=== PATIENT | female | born 2000 | race Caucasian/White ===

== ENCOUNTER 2022-12-10 14:27 | Outpatient (CLI) | payer OTHER, MEDICAID, SELFPAY ==
--- NOTE | 2022-12-10 14:51 | DI.US.S_ITS ---
PROCEDURE: US OB BIOPHYSICAL PROFILE INDICATIONS: wellbeing OUTSIDE/PRIOR DATING DATA: Last menstrual period (LMP): 03/21/22 LMP-based estimated date of delivery (PRANAY): 12/26/22. First dating scan (date and location): 11/02/[address] Roldan Estimated date of delivery (PRANAY) from first dating scan: 12/25/22, by Dr. Roldan. TECHNIQUE: Real-time scanning was performed of the fetus for biophysical profile, with image documentation. Color and pulse Doppler interrogation was also performed of the umbilical artery near its insertion into the placenta. Endovaginal scanning: Not needed COMPARISON: [facility], US, US OB >= 14 WEEKS FETUS, 11/02/2022, 11:27. FINDINGS: General: A single living intrauterine gestation is present. Presentation: Breech. Placenta: Placental position is anterior , without previa. Amniotic fluid index: 7.7 cm, normal range is 5-24 cm. Single deepest vertical pocket is 3.7 cm. heart rate: 137 beats per minute. Biophysical profile: Tone: 2 points. Movement: 2 points. Respiration: 2 points. Largest pocket of fluid: 2 points. IMPRESSION: Limited study at Ob specialist request. Biophysical profile yields 8 of 8 possible points. We strive to produce accurate, complete, and clear reports of imaging services. To assist us in improving patient care, this report was composed using standard report templates and voice recognition software. Therefore, it may contain abnormal punctuation, insertions and/or omissions. Occasional wrong-word or sound-alike substitutions may occur. Though we review the report and make efforts to correct it, we do recommend that the report be read carefully in proper context to recognize any text inaccuracies. Dictated by: Simon Crum M.D. on 12/10/2022 at 16:33 Approved by: Simon Crum M.D. on 12/10/2022 at 16:37
== END 2022-12-10 16:05 | disposition home or self-care (01) ==
LOC: LABOR 14:40 → OB 12-13 07:39
PROVIDERS: Referring Provider Obstetrics & Gynecology; Visit Provider Obstetrics & Gynecology
DX: O47.1 False labor at or after 37 completed weeks of gestation (principal); Z3A.37 37 weeks gestation of pregnancy
CPT/HCPCS: 59025; 76819; G0378; G0379

== ENCOUNTER 2022-12-13 05:38 | Inpatient (IN) | payer OTHER, MEDICAID, SELFPAY ==
[2022-12-13] VITALS (8 sets, daily range): BP systolic 118–132; BP diastolic 63–87; PULSE 66–82; RESP 12–15; TEMP 35.9–36.2; O2SAT 97–99
[2022-12-13] MEDS: LACTATED RINGERS 1,000 ML 999 ML IV ×2 (07:00→08:36)
[2022-12-13] MEDS: CITRIC ACID/SODIUM CITRATE 15 ML SOLUTION 30 ML PO (07:00)
[2022-12-13 07:36] LABS: Add Manual Diff / Slide Review NO; Basophils Absolute Auto 100 /uL (0-100); Basophils Percent Auto 0.8 % (0-2); Eosinophils Absolute Auto 100 /uL (0-450); Eosinophils Percent Auto 1.4 % (2-4); Hematocrit 27.9 % (36-46); Hemoglobin 9.6 g/dL (12.0-16.0); Lymphocytes Absolute Auto 1800 /uL (1100-4500); Lymphocytes Percent Auto 17.6 % (25-40); Mean Corpuscular HGB Conc 34.5 % (30-36); Mean Corpuscular Hemoglobin 30.9 PG (26-34); Mean Corpuscular Volume 89.6 fL (80-100); Monocytes Absolute Auto 800 /uL (0-900); Monocytes Percent Auto 8.2 % (3-14); Neutrophils Absolute Auto 7300 /uL (1500-7000); Platelet Count 199 X10^3/uL (150-400); Red Blood Cell Count 3.11 X10^6/uL (4.0-5.2); Red Cell Distribution Width 12.8 % (11.6-14.8); White Blood Cell Count 10.1 X10^3/uL (4.5-11.0)
--- NOTE | 2022-12-13 07:50 | PM.OBHP.IH.1 ---
OB HPI Date/Time Date of admission: 12/13/22 Date Patient Seen: 12/13/22 Time Patient Seen: 07:51 History of Present Condition Chief complaint: Section PRANAY Calculator Estimated Delivery Date Method Current WG Current Estimate 12/26/22 Manual 38w 1d Estimated Gestational Age (weeks): 38+1 : 1 Para: 0 care: good care, initiated at week #, number of visits and pounds weight gain Dating criteria OB: LMP confirmed by 1st trimester US Ultrasounds: normal 1st trimester US and normal mid trimester US Obstetrical complications: other (breech, placenta previa) Medical complications OB: psychiatric (bipolar) Indications Operative indications ( section): breech presentation (and placenta previa, oligohydramnios) Preadmission Labs Last OB Lab Results: Blood Type A Positive 12/13/22 07:25 Antibody Screen Negative 12/13/22 07:25 Hematocrit 27.9 % (36-46) L 12/13/22 07:25 Hemoglobin 9.6 g/dL (12.0-16.0) L 12/13/22 07:25 -: Chlamydia screen: negative, Gonorrhea screen: negative and Urine: negative -: PAP smear: Normal External Labs Blood type OB HPI: A (+) positive -: Antibody screen: negative, HBsAG: negative, HIV: negative, RPR/VDLR: negative, Chlamydia screen: negative, Gonorrhea screen: negative, GBS status: negative and Urine: negative -: Rubella: immune HCAB: negative PAP: Normal Genetic Screens: Quad screen: Normal Glucose Tolerance Testin hr (101) Evaluation Evaluation Baseline heart rate: 135 Variability: Moderate (11-25) monitor accelerations: Present Monitor Decelerations: Absent Status: Category l PFSH Medical History (Updated 11/14/22 @ 20:34 by Aneta Wood) Anemia Anxiety Asthma Chicken pox Depression Frequent UTI Headache History of bipolar disorder Migraines PTSD (post-traumatic stress disorder) Sciatica Family History (Updated 11/14/22 @ 20:40 by Aneta Wood) Father Hyperlipidemia Hypertension Mental health problem Mother Hypertension Hyperlipidemia Mental health problem Monserrat's disease Sister Mental health problem Grandfather Hyperlipidemia Hypertension Mental health problem Grandmother Hypertension Mental health problem Grandfather Liver cancer Hypertension Mental health problem Stroke Rheumatoid arthritis Social History Smoking Status: Former smoker Meds Home Medications and Allergies Home Medications Medication Instructions Recorded Confirmed Type vitamin with calcium 1 tab PO DAILY 11/02/22 12/07/22 History no.72-iron 27 mg-folic acid 1 mg tablet (WesTab Plus) quetiapine 400 mg tablet (Seroquel) 400 mg PO BEDTIME 11/02/22 12/07/22 History quetiapine 50 mg tablet (Seroquel) 50 mg PO BEDTIME #10 tabs 11/02/22 12/07/22 Rx Allergies Allergy/AdvReac Type Severity Reaction Status Date / Time No Known Allergies Allergy Verified 12/13/22 09:04 OB Exam Narrative Exam Narrative: Generally: Patient is sitting up in bed, no acute distress Lungs: Clear to auscultation bilaterally Cardiovascular: Regular rate and rhythm Fundal height: 38 cm Estimated weight: 7 lb Extremities: No edema, 1+ DTRs Objective Labs 12/13/22 07:25 Labs: Laboratory Results - last 24 hr 12/13/22 07:25 WBC 10.1 RBC 3.11 L Hgb 9.6 L Hct 27.9 L MCV 89.6 MCH 30.9 MCHC 34.5 RDW 12.8 Plt Count 199 Neut % (Auto) 72.0 Lymph % (Auto) 17.6 L Meagher % (Auto) 8.2 Eos % (Auto) 1.4 L Baso % (Auto) 0.8 Neut # (Auto) 7300 H Lymph # (Auto) 1800 Meagher # (Auto) 800 Eos # (Auto) 100 Baso # (Auto) 100 Assessment and Plan Assessment and Plan Assessment and Plan narrative: Assessment: 22-year-old 1 para 0 at 38-,1/7 weeks gestation with oligohydramnios, breech presentation, and placenta previa Plan: Primary low-transverse section The risks, benefits, and alternatives to the procedure were explained to the patient. The risks including bleeding, infection, injury to the bowel, bladder, or ureters. She understands these risks and agrees to proceed. A full par Q was held and consent form was signed. Time Spent with Patient Total time spent with greater than 50% in coordination of care (as documented) at patient's floor/unit and/or counseling patient:: 15-24 minutes
--- NOTE | 2022-12-13 08:02 | PM.PREOP ---
Pre-operative Note COVID-19 Criteria for continued procedure: Non-surgical alternatives not available or appropriate per current SOC Interval Note History & Physical reviewed/Exam performed by Physician: Yes Changes to H&P: No H&P completed within 30 days and has changed as indicated here:: 12/13/22
[2022-12-13] MEDS: CEFAZOLIN 2 GM/100 ML PREMIX 100 ML IV (08:18)
--- NOTE | 2022-12-13 08:26 | SUR.OPER ---
Supine on Padded OR bed, head on pillow, safety belt at thigh, arms secured on padded arm boards at <90 degrees abduction. Bump under right buttock. Legs uncrossed with pillow under knees, gel pad to heels, tape over blanket to lower legs.
--- NOTE | 2022-12-13 08:37 | SUR.OPER ---
Viable baby boy born at 0829. Placenta delivered at 0832. APGARs 9/9. Cord blood and placenta given to OB RN.
[2022-12-13] MEDS: ACETAMINOPHEN IV 1,000 MG/100 ML VIAL 400 MG IV (08:50)
--- NOTE | 2022-12-13 09:34 | PM.OBCS.1 ---
Operative Date/Time/Diagnoses Date of procedure: 12/13/22 Time of procedure: 09:34 Pre-op diagnosis: 38+1 weeks gestation Breech presentation Placenta previa Oligohydramnios Post-op diagnosis: same Procedure & Clinicians Procedure: Primary low transverse C section Same procedure as scheduled: Yes Indications: Breech presentation Oligohydramnios Placenta previa 38+1 weeks gestation Surgeon: Mariaa Milner Yes if Unassisted: No [employer] Advanced Operator Maintainer: Blessing Lanier Reason for [employer] Advanced Operator Maintainer: The family assistant was necessary to retract upon entry into the abdomen and uterus. She assisted with a breech delivery with gentle fundal pressure. She assisted with closure with retraction and clipping of suture. She closed the contralateral fascia. Anesthesia Type: Spinal (with duramorph) Operative Notes Findings: Live male in the complete breech presentation Normal uterus, tubes and ovaries Closure Type: primary Specimen(s): cord blood and placenta Intraoperative meds administered: Duramorph, Ketorolac and Pitocin Applied: Catheter (to continuous drainage) Estimated Blood Loss (mL): 100 Blood products transfused: none Procedure in detail: The patient was taken to the operating room where she was placed in the seated position. Spinal anesthesia with Duramorph was administered. She was placed in the dorsal supine position with a leftward tilt, and prepped and draped in the usual sterile fashion. A Gutierrez catheter was placed before prepping. After spinal anesthesia was found be adequate, a Pfannenstiel skin incision was made 2 fingerbreadths above the pubic symphysis and carried through to the underlying layer of fascia. The fascia was nicked in the midline and the incision extended bilaterally with the Nix scissors. The superior aspect of the fascial incision was grasped with the Esther clamps, elevated, and the underlying rectus muscles dissected off sharply and bluntly. Attention was then turned to the inferior aspect of this incision which in a similar fashion was grasped with the Esther clamps, elevated, and the underlying rectus muscles dissected off sharply and bluntly. The rectus muscles were in the midline. The peritoneum was identified, grasped between 2 hemostats, and entered sharply with the Metzenbaum scissors. This incision was extended bluntly. The bladder blade was inserted. The vesicouterine peritoneum was identified, grasped with a pickup, and entered sharply with the Metzenbaum scissors. This incision was extended bilaterally, and the bladder flap created digitally. The bladder blade was reinserted. The lower uterine segment was incised in a transverse fashion with the scalpel. Upon entering the amniotic sac there was scant clear amniotic fluid. The was delivered by total breech extraction. The nose and mouth were suctioned with bulb suction. After 1 minute, the cord was double clamped and cut. Cord bloods were obtained. The placenta was removed by expression. The uterus was cleared of all clots and debris. The cervix was opened using a ring forcep. The ring forceps was then handed off of the table. The uterine incision was closed with #1 Chromic in a running interlocking fashion, and a second layer of the same suture was used for an imbricating layer. Hemostasis was achieved. The tubes and ovaries were examined and were found to be normal. The gutters were cleared of all clots and debris. The bladder flap was reapproximated using 2-0 Vicryl in a running fashion. The parietal peritoneum was closed using 2-0 Vicryl in a running fashion. The fascia was reapproximated using 0 Vicryl in a running fashion. The subcutaneous layer was copiously irrigated with warm normal saline. There was no bleeding noted. Five simple interrupted sutures with 3-0 Vicryl were placed to reapproximate the subcutaneous layer. The skin was closed with 4-0 Monocryl in a subcuticular fashion. Steri-Strips and an Aquacel dressing were placed. The uterus was expressed of a small amount of old blood. The fundus was firm at U -2. Apgars 9 at 1 minute and 9 at 5 minutes. Weight 7 lb 5.8 oz. estimated blood loss 100 cc. . Mom and infant are stable to recovery. Complications: none [place] Baby 1: Infant Gender: Male Presentation: breech Details: complete Placental Delivery Description: Expressed Cord Vessel Description: 3 Vessels and Clamped/Cut (after one minute) score (1 min): 9 score (5 min): 9 weight: 7 lb 5.8 oz Post-operative Condition: stable Disposition: PACU Aftercare: routine postop
[2022-12-13] MEDS: ONDANSETRON 4 MG/2 ML INJ IV ×2 (10:22→17:28)
[2022-12-13] MEDS: diphenhydrAMINE 50 MG/ML VIAL 25 MG IV (10:58)
[2022-12-13] MEDS: SCOPOLAMINE 1 PATCH TOP (11:20)
[2022-12-13] MEDS: PROCHLORPERAZINE 10 MG/2 ML VIAL 5 MG IV (11:23)
[2022-12-13] MEDS: PROMETHAZINE 25 MG TABLET 12.5 MG PO (11:31)
[2022-12-13] MEDS: PROMETHAZINE 12.5 MG SUPP PR (11:34)
[2022-12-13] MEDS: OXYCODONE IR 5 MG TABLET PO (11:36)
[2022-12-13] MEDS: hydrOXYzine 50 MG/ML INJ IM (13:06)
[2022-12-13] MEDS: KETOROLAC 30 MG/ML VIAL IV ×2 (14:00→20:19)
[2022-12-13] MEDS: ACETAMINOPHEN 325 MG TABLET 650 MG PO ×2 (17:28→23:56)
[2022-12-14] MEDS: KETOROLAC 30 MG/ML VIAL IV (02:10)
[2022-12-14 05:49] LABS: Hematocrit 26.3 % (36-46); Hemoglobin 9.1 g/dL (12.0-16.0)
[2022-12-14] MEDS: ACETAMINOPHEN 325 MG TABLET 650 MG PO ×3 (05:55→21:06)
[2022-12-14] MEDS: DOCUSATE 100 MG CAPSULE PO (09:57)
[2022-12-14] MEDS: IBUPROFEN 600 MG TABLET PO ×3 (09:57→22:01)
[2022-12-14] MEDS: OXYCODONE IR 5 MG TABLET PO (14:13)
--- NOTE | 2022-12-14 18:09 | PM.OBPN.1 ---
Subjective - OB Subjective Patient comments: no complaints, pain well controlled and tolerating diet baby status: doing well feeding status: breast and bottle feeding Date Patient Seen: 12/14/22 Time Patient Seen: 12:45 Interval history: POD #1 s/p Primary C section Ambulating, voiding without the catheter, tolerating a diet. Struggling with Exam Vital Signs (past 8 hours): Oxygen Delivery Method Room Air Narrative Exam Narrative: Generally: Sitting up in bed, feeding infant, NAD Fundus: Firm U/-1 Incision: Small area of old blood. Ext: Trace edema, Neg Harish's Objective Labs 12/14/22 05:37 Labs: Laboratory Results - last 24 hr 12/14/22 05:37 Hgb 9.1 L Hct 26.3 L Assessment & Plan Plan day: 1 plan OB: routine postop care Comments: support Time Spent With Patient Time: Total time spent is greater than 50% in coordination of care (as documented) at patient's floor/unit and/or counseling patient: Time with patient: 15-24 minutes
[2022-12-15] MEDS: ACETAMINOPHEN 325 MG TABLET 650 MG PO ×2 (03:19→09:01)
[2022-12-15] MEDS: IBUPROFEN 600 MG TABLET PO ×2 (03:20→09:02)
[2022-12-15] MEDS: OXYCODONE IR 5 MG TABLET PO (03:44)
[2022-12-15] MEDS: PRENATAL VIT,CALC/IRON/FOLIC 1 TABLET 1 TAB PO (09:01)
[2022-12-15] MEDS: DOCUSATE 100 MG CAPSULE PO (09:01)
--- NOTE | 2022-12-18 18:12 | PM.OBDS.1 ---
Discharge Providers Provider Date of admission: 12/13/22 05:38 Discharge Date: 12/15/22 Primary care physician: Doctor Seth MD Consults: 12/13/22 09:44 Consult to Environmental Change Analyst Routine Comment: Discharge provider: Mariaa Roldan MD Summary Hospital Course Date Patient Seen: 12/15/22 Time Patient Seen: 07:30 Diagnoses: 38-1/7 weeks gestation Breech presentation Oligohydramnios Placenta previa Primary low-transverse section Hospital Course: Patient is a 22-year-old 1 para 1 who presented December 13, 2022 for a scheduled primary low-transverse section secondary to oligohydramnios, breech presentation, and placenta previa. She underwent this procedure without complication. She had significant nausea and vomiting on postop day #0. This was resolved with IV antiemetics. On postop day #, her catheter was removed and she was able to void without the catheter. She tolerated a diet. Pain was well controlled. She was ambulating without assistance. was going well. She was discharged home on postop day #1. Peripartum Data Infant Delivery Method: Section Procedures: Spinal anesthesia Primary low-transverse section complications: none [place] 1: Gender: Male Disposition of : home Status at Discharge Cognitive/behavioral status at discharge: oriented Functional status at discharge: independent ambulation Overall status at discharge: patient is progressing back to baseline Time Spent with Patient Time attestation: Total time spent providing and/or coordinating discharge services: Time spent: Less than 30 minutes Objective Labs 12/14/22 05:37 Exam Vital Signs (past 8 hours): Oxygen Delivery Method Room Air Narrative Exam Narrative: Generally: Patient is sitting up in bed, holding infant, no acute distress Lungs: Clear to auscultation bilaterally Cardiovascular: Regular rate and rhythm Fundus: Firm at U -2 Incision: Clean dry and intact with Aquacel dressing Extremities: Trace edema, negative Homans Discharge Plan Discharge Plan Patient Disposition: Home Provider Discharge Comment: Call with fever, chills, or redness or drainage around the incision Call with bleeding vaginally more than a pad in an hour Ibuprofen 600 mg every 6 hours as needed Tylenol 650 mg every 6 hours as needed Continue vitamins Push oral fluids Discharge orders & Medications Prescriptions: New oxycodone 5 mg tablet 5 mg PO Q4H PRN (Reason: pain) Qty: 14 0RF Continued quetiapine [Seroquel] 50 mg tablet 50 mg PO BEDTIME Qty: 10 0RF quetiapine [Seroquel] 400 mg tablet 400 mg PO BEDTIME WesTab Plus 27 mg iron- 1 mg tablet 1 tab PO DAILY Follow up/Referrals: Mariaa Roldan MD [Physician] - (Please arrange a 2 week telehealth visit for patient Her mom will remove the Aquacel dressing) Diet/Activity/Treatments Diet: Regular Activity: No heavy lifting Nothing more than the baby or a gal of milk Skin/Wound/Dressing Care Report to your healthcare provider any signs of infection, such as:: chills, fever, increased pain, unusual drainage and unusual redness Dressing: Aquacel dressing to be removed by her mother in 1 week Visit Report/Discharge Packet Instructions: Depression, DI for , DI for Depression, DI for and Nipple Soreness, DI for Prescription Opioid Use Stand Alone Forms: Discharge: Care, Patient Portal/API, Stroke Signs & Symptoms Discharge Data Primary Care Provider: Miscellaneous,Doctor Discharges patient from system. Discharge Date/Time: 12/15/22 16:00
== END 2022-12-15 16:00 | disposition home or self-care (01) | DRG 787 ==
PROVIDERS: Admitting Provider Obstetrics & Gynecology; Referring Provider Obstetrics & Gynecology; Visit Provider Obstetrics & Gynecology
PROC: 10D00Z1 Extraction of Products of Conception, Low, Open Approach (ICD-10-PCS; CPT 59514; principal; 2022-12-13 07:45)
DX: O32.8XX0 Maternal care for other malpresentation of fetus, not applicable or unspecified (principal); O41.03X0 Oligohydramnios, third trimester, not applicable or unspecified; O44.03 Complete placenta previa NOS or without hemorrhage, third trimester; Z3A.38 38 weeks gestation of pregnancy; Z37.0 Single live birth; O99.344 Other mental disorders complicating childbirth; F31.9 Bipolar disorder, unspecified
CPT/HCPCS: 36415; 59050; 59514; 59515; 85014; 85018; 85025; 86850; 86900; 86901; J0131; J0690; J0780; J1200; J1885; J2274; J2405; J2590; J3410

== ENCOUNTER → 2024-02-16 11:25 | Outpatient (CLI) | payer OTHER, MEDICAID, SELFPAY ==
[2024-02-16 13:49] LABS: HCG Quantitative /Beta subunit 5.49 mIU/mL
== END ==
PROVIDERS: Referring Provider Obstetrics & Gynecology; Visit Provider Obstetrics & Gynecology
DX: O02.0 Blighted ovum and nonhydatidiform mole (principal)
CPT/HCPCS: 36415; 84702

== ENCOUNTER → 2024-02-23 13:13 | Outpatient (CLI) | payer OTHER, MEDICAID, SELFPAY ==
[2024-02-23 15:20] LABS: HCG Quantitative /Beta subunit 2.87 mIU/mL
== END ==
PROVIDERS: Referring Provider Obstetrics & Gynecology; Visit Provider Obstetrics & Gynecology
DX: O02.0 Blighted ovum and nonhydatidiform mole (principal)
CPT/HCPCS: 36415; 84702

== ENCOUNTER → 2024-03-01 11:32 | Outpatient (CLI) | payer OTHER, MEDICAID, SELFPAY ==
[2024-03-01 12:43] LABS: HCG Quantitative /Beta subunit < 2.39 mIU/mL
== END ==
PROVIDERS: Referring Provider Obstetrics & Gynecology; Visit Provider Obstetrics & Gynecology
DX: O08.89 Other complications following an ectopic and molar pregnancy (principal)
CPT/HCPCS: 36415; 84702

== ENCOUNTER → 2024-03-26 14:01 | Outpatient (CLI) | payer OTHER, MEDICAID, SELFPAY ==
[2024-03-26 15:55] LABS: HCG Quantitative /Beta subunit < 2.39 mIU/mL
== END ==
PROVIDERS: Referring Provider Obstetrics & Gynecology; Visit Provider Obstetrics & Gynecology
DX: O08.89 Other complications following an ectopic and molar pregnancy (principal)
CPT/HCPCS: 36415; 84702

== ENCOUNTER → 2024-05-04 15:49 | Outpatient (CLI) | payer OTHER, MEDICAID, SELFPAY ==
[2024-05-04 17:59] LABS: HCG Quantitative /Beta subunit < 2.39 mIU/mL
== END ==
PROVIDERS: Referring Provider Obstetrics & Gynecology; Visit Provider Obstetrics & Gynecology
DX: O08.89 Other complications following an ectopic and molar pregnancy (principal)
CPT/HCPCS: 36415; 84702

== ENCOUNTER → 2024-05-30 14:48 | Outpatient (CLI) | payer OTHER, SELFPAY ==
[2024-05-30 16:31] LABS: HCG Quantitative /Beta subunit 178.72 mIU/mL
== END ==
PROVIDERS: Referring Provider Obstetrics & Gynecology; Visit Provider Obstetrics & Gynecology
DX: O09.A1 Supervision of pregnancy with history of molar pregnancy, first trimester (principal)
CPT/HCPCS: 36415; 84702

== ENCOUNTER → 2024-06-01 09:29 | Outpatient (CLI) | payer OTHER, SELFPAY ==
[2024-06-01 11:29] LABS: HCG Quantitative /Beta subunit 482.62 mIU/mL
== END ==
PROVIDERS: Referring Provider Obstetrics & Gynecology; Visit Provider Obstetrics & Gynecology
DX: O09.A1 Supervision of pregnancy with history of molar pregnancy, first trimester (principal)
CPT/HCPCS: 36415; 84702

== ENCOUNTER → 2024-06-11 14:31 | Outpatient (CLI) | payer OTHER, SELFPAY ==
[2024-06-11 23:10] LABS: Urine N gonorrhoeae NOT DETECTED
[2024-06-11 23:27] LABS: Urine Chlamydia NOT DETECTED
== END ==
PROVIDERS: Visit Provider Obstetrics & Gynecology
DX: Z34.81 Encounter for supervision of other normal pregnancy, first trimester (principal); Z3A.09 9 weeks gestation of pregnancy
CPT/HCPCS: 87491; 87591

== ENCOUNTER → 2024-07-12 16:01 | Outpatient (CLI) | payer OTHER, SELFPAY ==
[2024-07-12 17:14] LABS: Natera Collection Specimen Collected
[2024-07-12 17:38] LABS: Add Manual Diff / Slide Review NO; Basophils Absolute Auto 0 /uL (0-100); Basophils Percent Auto 0.2 % (0-2); Eosinophils Absolute Auto 100 /uL (0-450); Hematocrit 32.8 % (36-46); Hemoglobin 11.3 g/dL (12.0-16.0); Lymphocytes Absolute Auto 1300 /uL (1100-4500); Lymphocytes Percent Auto 14.6 % (25-40); Mean Corpuscular HGB Conc 34.6 % (30-36); Mean Corpuscular Hemoglobin 30.6 PG (26-34); Mean Corpuscular Volume 88.5 fL (80-100); Monocytes Absolute Auto 500 /uL (0-900); Monocytes Percent Auto 5.2 % (3-14); Neutrophils Absolute Auto 6900 /uL (1500-7000); Platelet Count 251 X10^3/uL (150-400); Red Cell Distribution Width 13.7 % (11.6-14.8); White Blood Cell Count 8.8 X10^3/uL (4.5-11.0)
[2024-07-12 18:32] LABS: Hepatitis B Surface Antigen NEGATIVE s/c (NEGATIVE); Rubella Antibody IgG 10.6 IU/mL (>15)
[2024-07-12 18:49] LABS: HIV 1 & 2 Ab/Ag 4th Gen Combo NEGATIVE (NEGATIVE); Hep C Virus Ab w/Reflex Quant NEGATIVE s/c (NEGATIVE)
== END ==
PROVIDERS: Referring Provider Obstetrics & Gynecology; Visit Provider Obstetrics & Gynecology
DX: O09.899 Supervision of other high risk pregnancies, unspecified trimester (principal); Z3A.10 10 weeks gestation of pregnancy
CPT/HCPCS: 36415; 80055; 86787; 86803; 86850; 86900; 86901; 87086; 87389

== ENCOUNTER → 2024-07-26 10:00 | Outpatient (CLI) | payer OTHER, SELFPAY | PROVIDERS: Visit Provider Specialist | DX: R31.9 Hematuria, unspecified (principal); Z3A.12 12 weeks gestation of pregnancy | CPT/HCPCS: 87086 ==

== ENCOUNTER → 2024-08-02 13:58 | Outpatient (CLI) | payer OTHER, SELFPAY ==
[2024-08-02 14:15] LABS: Appearance Urine UA CLEAR; Bilirubin Urine UA NEGATIVE (NEGATIVE); Color Urine UA YELLOW; Glucose Urine UA NEGATIVE (Negative); Ketones Urine UA TRACE (NEGATIVE); Leukocyte Esterase Urine UA NEGATIVE (NEGATIVE); Nitrite Urine UA NEGATIVE (Negative); Occult Blood Urine UA TRACE-INTACT (Negative); Protein Urine UA NEGATIVE (Negative); Specific Gravity Urine UA 1.025 (1.000-1.035); Urobilinogen Urine UA 0.2 E.U./dL (0.2)
[2024-08-02 14:27] LABS: pH Urine UA 5.5 (4.5-8.0)
[2024-08-02 14:28] LABS: Bacteria Urine Occasional (0-1); RBC Urine 1-5/HPF (0-5/HPF); Squamous Epithelial Cell Urine 1-5 /HPF (0-5/HPF); Urine Volume 10mL (spun); WBC Urine 1-5/HPF (0-5/HPF)
[2024-08-02 14:29] LABS: Culture Indicated Urine Cult Not Indicated
== END ==
PROVIDERS: Referring Provider Obstetrics & Gynecology; Visit Provider Obstetrics & Gynecology
DX: R82.998 Other abnormal findings in urine (principal); R82.90 Unspecified abnormal findings in urine
CPT/HCPCS: 81001

== ENCOUNTER 2024-08-12 16:21 | Emergency (ER) | payer OTHER, SELFPAY ==
[2024-08-12 16:24] VITALS: BP 109/56; PULSE 88; RESP 18; TEMP 36.4; O2SAT 100; BMI 25.4
--- NOTE | 2024-08-12 16:34 | DI.US.S_ITS ---
PROCEDURE: US OB LIMITED INDICATIONS: CRAMPING OUTSIDE/PRIOR DATING DATA: Last menstrual period (LMP): 05/07/2024. LMP-based estimated date of delivery (PRANAY): 02/11/2025. First dating scan (date and location): 06/28/2024, office based. Estimated date of delivery (PRANAY) from first dating scan: 02/07/2025. TECHNIQUE: Real-time scanning was performed of the fetus, with image documentation. COMPARISON: [facility], , US OB <= 14 WEEKS FETUS, 06/28/2024, 15:49. FINDINGS: A single live intrauterine gestation is present. Presentation: Vertex. Placenta: Placental position is posterior, without previa. Amniotic fluid index: 9.8 cm, normal range is 5-24 cm. Single deepest vertical pocket is 4.5 cm. heart rate: 145 beats per minute. Maternal cervical canal: 6 cm long. Normal lower limit is 2.5 cm. IMPRESSION: No imaging explanation is found for this patient's presenting symptoms. Normal appearing cervix, 6 cm. Normal SHANNA. Dictated by: Feng Paredes M.D. on 08/12/2024 at 17:05 Approved by: Feng Paredes M.D. on 08/12/2024 at 17:08
[2024-08-12 17:05] LABS: Add Manual Diff / Slide Review NO; Basophils Absolute Auto 0 /uL (0-100); Basophils Percent Auto 0.4 % (0-2); Eosinophils Absolute Auto 100 /uL (0-450); Eosinophils Percent Auto 1.1 % (2-4); Hematocrit 33.4 % (36-46); Hemoglobin 11.4 g/dL (12.0-16.0); Lymphocytes Absolute Auto 1600 /uL (1100-4500); Lymphocytes Percent Auto 20.5 % (25-40); Mean Corpuscular HGB Conc 34.1 % (30-36); Mean Corpuscular Hemoglobin 30.4 PG (26-34); Mean Corpuscular Volume 89.1 fL (80-100); Monocytes Absolute Auto 500 /uL (0-900); Monocytes Percent Auto 6.1 % (3-14); Neutrophils Absolute Auto 5600 /uL (1500-7000); Neutrophils Percent Auto 71.9 % (50-75); Platelet Count 248 X10^3/uL (150-400); Red Blood Cell Count 3.75 X10^6/uL (4.0-5.2); Red Cell Distribution Width 13.3 % (11.6-14.8); White Blood Cell Count 7.8 X10^3/uL (4.5-11.0)
[2024-08-12 17:14] LABS: Alanine Aminotransferase 22 IU/L (<35); Albumin 4.3 g/dL (3.5-5.0); Albumin Globulin Ratio 1.5 (1.0-2.8); Alkaline Phosphatase 60 U/L (38-126); Aspartate Aminotransferase 28 IU/L (14-36); BUN Creatinine Ratio 17.9 (6-22); Bilirubin Total 0.6 mg/dL (0.2-1.3); Blood Urea Nitrogen 10 mg/dL (7-17); Calcium 9.4 mg/dL (8.4-10.2); Carbon Dioxide 21 mmol/L (22-32); Chloride 104 mmol/L (98-107); Estimated Glomerular Filt Rate > 60 mL/min (>60); Globulin 2.8 g/dL (1.7-4.1); Glucose 88 mg/dL (70-100); HEMOLYSIS < 15 (0-50); Potassium 3.9 mmol/L (3.4-5.1); Sodium 135 mmol/L (137-145); Total Protein 7.1 g/dL (6.3-8.2)
[2024-08-12 17:55] LABS: HCG Quantitative /Beta subunit 29403 mIU/mL
--- NOTE | 2024-08-12 21:05 | ED.GENADULT ---
HPI - General Adult General Chief complaint: OB/Uterine Contractions Stated complaint: cramping, cant find heartbeat 14wks Time Seen by Provider: 08/12/24 20:41 Source: patient Mode of arrival: Ambulatory History of Present Illness HPI narrative: 24-year-old female (prior molar ) currently at 14-15 weeks gestation, complains of abdominal cramping through the day today. No leaking of fluid, no vaginal bleeding. She does have a son at home with recent diagnosis of norovirus. No nausea or vomiting since 1st trimester of this , none recent. No loose stools. No fevers or chills. No frequency of urination. No painful urination. No shortness of breath or cough. No known injury, trauma, new activities. Has care through Dr. 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 Related Data Home Medications Medication Instructions Recorded Confirmed fluoxetine 20 mg capsule 20 mg PO DAILY 02/16/24 07/26/24 aripiprazole 10 mg tablet 10 mg PO DAILY 06/04/24 07/26/24 Previous Rx's Medication Instructions Recorded ondansetron 4 mg disintegrating 4 mg PO Q6H PRN nausea and 07/20/24 tablet vomiting in #20 tabs vitamin with calcium 1 tab PO DAILY #90 tabs 07/23/24 no.72-iron 27 mg-folic acid 1 mg tablet (WesTab Plus) Allergies Allergy/AdvReac Type Severity Reaction Status Date / Time morphine AdvReac Mild Vomiting Verified 07/26/24 09:53 Patient History Medical History (Updated 08/12/24 @ 21:20 by Fili Kohler MD) Anemia Frequent UTI Partial molar Chicken pox Surgical History (Updated 06/25/24 @ 12:17 by Mariaa Roldan MD) History of dilation and curettage (~12/2023) Previous section [place] teeth extracted Family History (Updated 06/04/24 @ 08:13 by Chinyere Leon RN) Father Hyperlipidemia Hypertension Depression Anxiety PTSD (post-traumatic stress disorder) Mother Hypertension Hyperlipidemia Monserrat's disease Depression Sister Depression Grandfather Hyperlipidemia Hypertension Depression Suicide Anxiety Grandmother Hypertension OCD (obsessive compulsive disorder) Depression Grandfather Liver cancer Hypertension Stroke Rheumatoid arthritis PTSD (post-traumatic stress disorder) Depression Difficulty controlling anger Social History marital status: unmarried,living together number of children: 1 household members: significant other and children lives independently: Yes caregiver/support person: Yes housing: condominium ([facility]) pets and animals: Yes (joni) education level: vocational ([employer]) occupational status: employed (daycare) current occupational exposures/hazards: No special sabra needs: No travel history: over 6 months ago seatbelt use: always water heater temp set < 120 deg: Yes working smoke detector in home: Yes fire extinguisher in home: Yes carbon monox detector in home: Yes firearms in home: No do you feel safe at home: Yes Smoking Status: Former smoker Tobacco: How many years used: 8 quit status: considering quitting second hand exposure: Yes (s/o also trying to quit smoking/vaping) alcohol intake: former (extremely rarely when not ) substance use type: marijuana (not while /) during the past year weight has: other (back to normal non- weight) well-balanced diet: rarely or never daily servings fruits/ve-1 caffeine: Yes (single cup coffee ~every other day) Type(s) of exercise: none Smoking Status: Former smoker Exam Narrative Exam Narrative: GENERAL: Well-developed patient, in mild distress. HEAD: Atraumatic. Normocephalic. EYES: Pupils equal round and reactive. Extraocular motions intact. No scleral icterus. No injection or drainage. ENT: Nose without bleeding, purulent drainage. Throat without erythema, tonsillar hypertrophy or exudate. Airway patent. NECK: Trachea midline. Non tender CARDIOVASCULAR: Regular rate and rhythm without murmurs, gallops, or rubs. RESPIRATORY: Clear to auscultation. Breath sounds equal bilaterally. No wheezes, rales, or rhonchi. GASTROINTESTINAL: Abdomen soft, non-tender, nondistended. EXTREMITIES: No edema or joint tenderness. BACK: Nontender without deformity or crepitance. No flank tenderness. NEURO: AOx3. Motor functions grossly nonfocal SKIN: No rash or erythema of visible areas Initial Vital Signs Initial Vital Signs: Vital Signs Temperature 97.5 F L 08/12/24 16:24 Pulse Rate 88 08/12/24 16:24 Respiratory Rate 18 08/12/24 16:24 Blood Pressure 109/56 L 08/12/24 16:24 Pulse Oximetry 100 08/12/24 16:24 Oxygen Delivery Method Room Air 08/12/24 16:24 Course Orders Ordered: ED Orders 08/12/24 16:34 US OB limited Stat 08/12/24 16:50 Complete Blood Count AUTO DIFF Stat Comprehensive Metabolic Panel Stat HCG Quantitative /Beta subunit Stat Type and Screen Stat Vital Signs Vital signs: Vital Signs - 8 hr 08/12/24 21:24 Pulse Rate 68 Respiratory Rate 16 Blood Pressure 102/54 L Pulse Oximetry 98 Oxygen Delivery Method Room Air Medical Decision Making Lab Data Lab results reviewed: Yes I reviewed the patient's lab results. Lab results narrative: White blood cell count 7800, hemoglobin 11.4, platelets adequate. Basic metabolic panel unremarkable. Liver functions unremarkable. Serum hCG 16919 08/12/24 16:50 08/12/24 16:50 Labs: Lab Results 08/12/24 Range/Units 16:50 WBC 7.8 (4.5-11.0) X10^3/uL RBC 3.75 L (4.0-5.2) X10^6/uL Hgb 11.4 L (12.0-16.0) g/dL Hct 33.4 L (36-46) % MCV 89.1 (80-100) fL MCH 30.4 (26-34) PG MCHC 34.1 (30-36) % RDW 13.3 (11.6-14.8) % Plt Count 248 (150-400) X10^3/uL Neut % (Auto) 71.9 (50-75) % Lymph % (Auto) 20.5 L (25-40) % [place] % (Auto) 6.1 (3-14) % Eos % (Auto) 1.1 L (2-4) % Baso % (Auto) 0.4 (0-2) % Neut # (Auto) 5600 (5153-5211) /uL Lymph # (Auto) 1600 (3851-3311) /uL [place] # (Auto) 500 (0-900) /uL Eos # (Auto) 100 (0-450) /uL Baso # (Auto) 0 (0-100) /uL Sodium 135 L (137-145) mmol/L Potassium 3.9 (3.4-5.1) mmol/L Chloride 104 (98-107) mmol/L Carbon Dioxide 21 L (22-32) mmol/L BUN 10 (7-17) mg/dL Creatinine 0.56 (0.52-1.04) mg/dL Estimated GFR > 60 (>60) mL/min BUN/Creatinine Ratio 17.9 (6-22) Glucose 88 (70-100) mg/dL Calcium 9.4 (8.4-10.2) mg/dL Total Bilirubin 0.6 (0.2-1.3) mg/dL AST 28 (14-36) IU/L ALT 22 (<35) IU/L Alkaline Phosphatase 60 (38-126) U/L Total Protein 7.1 (6.3-8.2) g/dL Albumin 4.3 (3.5-5.0) g/dL Globulin 2.8 (1.7-4.1) g/dL Albumin/Globulin Ratio 1.5 (1.0-2.8) HCG, Quant 37495 mIU/mL Blood Type A Positive Antibody Screen Negative Imaging Data OB ultrasound limited: Radiologist's Impression: [place] [address] Ultrasound Report Signed Patient: Gill Marino MR#: [id number] : 2000 Acct:[id number] Age/Sex: 24 / F Date of Service: 08/12/24 Loc: ED Accession Number: [id number] Procedure: US OB limited Ordering Provider: Kasey Sun D.O. PROCEDURE: US OB LIMITED INDICATIONS: CRAMPING OUTSIDE/PRIOR DATING DATA: Last menstrual period (LMP): 05/07/2024. LMP-based estimated date of delivery (PRANAY): 02/11/2025. First dating scan (date and location): 06/28/2024, office based. Estimated date of delivery (PRANAY) from first dating scan: 02/07/2025. TECHNIQUE: Real-time scanning was performed of the fetus, with image documentation. COMPARISON: [facility], , US OB <= 14 WEEKS FETUS, 06/28/2024, 15:49. FINDINGS: A single live intrauterine gestation is present. Presentation: Vertex. Placenta: Placental position is posterior, without previa. Amniotic fluid index: 9.8 cm, normal range is 5-24 cm. Single deepest vertical pocket is 4.5 cm. heart rate: 145 beats per minute. Maternal cervical canal: 6 cm long. Normal lower limit is 2.5 cm. IMPRESSION: No imaging explanation is found for this patient's presenting symptoms. Normal appearing cervix, 6 cm. Normal SHANNA. Dictated by: Feng Paredes M.D. on 08/12/2024 at 17:05 Approved by: Feng Paredes M.D. on 08/12/2024 at 17:08 [facility] Narrative Medical decision making narrative: Current 14-15 weeks gestation, with abdominal cramping, young child at home with norovirus. No nausea or vomiting outside of 1st trimester, no diarrhea. No new activities. Abdomen benign. Screening labs unremarkable. Ultrasound pelvis ordered at triage. Ultrasound shows presence of intrauterine single live, no acute changes to explain abdominal cramping symptoms. Normal cervical length. See radiology report. Patient advised to follow up with obstetrics provider as planned, if she has early norovirus infection she may develop nausea and vomiting and diarrhea. Encouraged to stay well hydrated. No vaginal bleeding, does not sound suspicious for threatened miscarriage at this time Discharge Plan Departure Patient Disposition: Home Clinical Impression: Abdominal cramping, Activity Restrictions/Additional Instructions: Abdominal cramping in context of early 2nd trimester . Also young child at home with recent diagnosis of norovirus. You are currently not seeming to have any nausea outside of the 1st trimester during the , and not any diarrhea so far, if you were exposed to norovirus. No symptoms of vaginal bleeding or leaking of fluid. Ultrasound tonight showed reassuring live intrauterine Lara . Screening labs unremarkable. No stool specimen obtained to have lab analysis to screen for norovirus or other enteric pathogens. Symptoms and examination reassuring at this time. Follow up with your obstetrics provider as scheduled this next week. Consider calling their office tomorrow Tuesday to see if they would want to move up the appointment. Return earlier to this/nearest emergency department for any change worsening symptoms or any concerns prior Prescriptions: No Action ondansetron 4 mg tablet,disintegrating 4 mg PO Q6H PRN (Reason: nausea and vomiting in ) Qty: 20 1RF WesTab Plus 27 mg iron- 1 mg tablet 1 tab PO DAILY Qty: 90 3RF aripiprazole 10 mg tablet 10 mg PO DAILY fluoxetine 20 mg capsule 20 mg PO DAILY Referrals: Mariaa Roldan MD [Physician] - Miscellaneous,MD Lacie [Primary Care Provider] - Stand Alone Forms: Patient Portal/API/Survey
[2024-08-12 21:24] VITALS: BP 102/54; PULSE 68; RESP 16; O2SAT 98
== END 2024-08-12 21:25 | disposition home or self-care (01) ==
PROVIDERS: Emergency Medicine; Emergency Provider Emergency Medicine
DX: O26.892 Other specified pregnancy related conditions, second trimester (principal); R10.9 Unspecified abdominal pain; Z3A.14 14 weeks gestation of pregnancy; Z20.828 Contact with and (suspected) exposure to other viral communicable diseases
CPT/HCPCS: 36415; 76815; 80053; 84702; 85025; 86850; 86900; 86901; 99281; 99284

== ENCOUNTER → 2024-08-23 14:52 | Outpatient (CLI) | payer OTHER, SELFPAY | LOC: LAB 14:53 | PROVIDERS: Referring Provider Obstetrics & Gynecology; Visit Provider Obstetrics & Gynecology | DX: Z34.82 Encounter for supervision of other normal pregnancy, second trimester (principal); Z3A.16 16 weeks gestation of pregnancy | CPT/HCPCS: 36415; 82105 ==

== ENCOUNTER → 2024-09-19 13:39 | Outpatient (CLI) | payer OTHER, SELFPAY ==
--- NOTE | 2024-09-19 13:40 | DI.US.S_ITS ---
PROCEDURE: US OB >= 14 WEEKS FETUS INDICATIONS: 20 week anatomy scan OUTSIDE/PRIOR DATING DATA: Last menstrual period (LMP): 05/07/2024. LMP-based estimated date of delivery (PRANAY): 02/11/2025. First dating scan (date and location): 06/28/2024. Estimated date of delivery (PRANAY) from first dating scan: 02/07/2025. The calculations are made using the working PRANAY of 02/07/2025. TECHNIQUE: Real-time scanning was performed of the fetus, with image documentation and biometric measurements. COMPARISON: [facility], , OB >= 14 WEEKS FETUS, 08/23/2024, 14:54. FINDINGS: General: A single living intrauterine gestation is present. Presentation: Breech. Placenta: Placental position is posterior , without previa. Amniotic fluid index: 12.3 cm, normal range is 5-24 cm. Single deepest vertical pocket is 3.9 cm. heart rate: 137 beats per minute. Maternal cervical canal: 5.0 cm long. Normal lower limit is 2.5 cm. biometrics: Biparietal diameter: 4.8 cm, 20 week 4 day Head circumference: 17.0 cm, 19 week 5 day Abdominal circumference: 15.6 cm, 20 week 5 day Femur length: 3.2 cm, 20 week 1 day Clinically estimated gestational age: 19 week 6 day Composite gestational age from present scan: 20 week 2 day Estimated weight and percentile: 349 g, 74 percentile Anatomic survey: Neuro: Ventricles are non-dilated at less than 10 mm. Cisterna magna is normal at 3-11 mm. Cerebellum is normal in size and morphology. Nuchal skin fold: Normal at less than 6 mm between 14-21 weeks gestational age. Face: Nose and lips, facial profile are normal. Spine: No evidence for spina bifida. Heart: 4-chambered heart is present, with normal ventricular outflow tracts. Diaphragm: Diaphragm is intact. Stomach: Left-sided stomach is present. Kidneys: No hydronephrosis. Normal is less than 5 mm in 2nd trimester, less than 7 mm in 3rd trimester. Cord: 3-vessel cord has orthotopic insertion. Bladder: Normal in size. Extremities: All 4 extremities identified. IMPRESSION: Single live intrauterine consistent with 20 week 2 day gestation by current ultrasound Normal anatomic survey Approved by: Tal Rome M.D. on 09/19/2024 at 19:33
== END ==
PROVIDERS: Referring Provider Obstetrics & Gynecology; Visit Provider Obstetrics & Gynecology
DX: Z36.89 Encounter for other specified antenatal screening (principal); Z3A.20 20 weeks gestation of pregnancy
CPT/HCPCS: 76811

== ENCOUNTER → 2024-10-03 07:50 | Outpatient (CLI) | payer OTHER, SELFPAY ==
[2024-10-03 08:43] LABS: Hemoglobin A1C% w Est Avg Glu 4.5 % (4.0-6.0)
[2024-10-03 08:57] LABS: Glucose 73 mg/dL (70-100)
== END ==
PROVIDERS: Referring Provider Specialist; Visit Provider Specialist
DX: O09.899 Supervision of other high risk pregnancies, unspecified trimester (principal); Z83.3 Family history of diabetes mellitus
CPT/HCPCS: 36415; 82947; 83036

== ENCOUNTER → 2024-10-05 11:16 | Outpatient (CLI) | payer OTHER, SELFPAY ==
[2024-10-05 12:47] LABS: Prolactin 18.3 ng/mL (3.0-18.6)
== END ==
PROVIDERS: Referring Provider Specialist; Visit Provider Specialist
DX: R68.89 Other general symptoms and signs (principal); Q15.9 Congenital malformation of eye, unspecified
CPT/HCPCS: 36415; 84146; 84443

== ENCOUNTER → 2024-10-08 12:13 | Outpatient (CLI) | payer OTHER, SELFPAY ==
[2024-10-08 13:05] LABS: HEMOLYSIS < 15 (0-50); Iron 97 ug/dL (37-170)
[2024-10-08 13:15] LABS: Percent Iron Saturation 26 % (15-50); Total Iron Binding Capacity 380 ug/dL (265-497); Transferrin 319 mg/dL (206-381)
[2024-10-08 13:36] LABS: Ferritin 11 ng/mL (6-137)
== END ==
PROVIDERS: Referring Provider Student in an Organized Health Care Education/Training Program; Visit Provider Student in an Organized Health Care Education/Training Program
DX: R53.83 Other fatigue (principal)
CPT/HCPCS: 36415; 82728; 83540; 83550

== ENCOUNTER → 2024-10-10 09:34 | Outpatient (CLI) | payer OTHER, SELFPAY ==
[2024-10-10 11:05] LABS: Add Manual Diff / Slide Review NO; Basophils Absolute Auto 0 /uL (0-100); Basophils Percent Auto 0.2 % (0-2); Eosinophils Absolute Auto 0 /uL (0-450); Eosinophils Percent Auto 0.7 % (2-4); Hemoglobin 10.6 g/dL (12.0-16.0); Lymphocytes Absolute Auto 1400 /uL (1100-4500); Lymphocytes Percent Auto 23.1 % (25-40); Mean Corpuscular HGB Conc 34.2 % (30-36); Mean Corpuscular Hemoglobin 30.8 PG (26-34); Mean Corpuscular Volume 89.9 fL (80-100); Monocytes Absolute Auto 500 /uL (0-900); Monocytes Percent Auto 7.3 % (3-14); Neutrophils Absolute Auto 4300 /uL (1500-7000); Neutrophils Percent Auto 68.7 % (50-75); Platelet Count 229 X10^3/uL (150-400); Red Blood Cell Count 3.45 X10^6/uL (4.0-5.2); Red Cell Distribution Width 12.3 % (11.6-14.8); White Blood Cell Count 6.2 X10^3/uL (4.5-11.0)
== END ==
PROVIDERS: Referring Provider Specialist; Visit Provider Specialist
DX: O09.899 Supervision of other high risk pregnancies, unspecified trimester (principal); R53.83 Other fatigue
CPT/HCPCS: 36415; 85025

== ENCOUNTER 2024-10-13 11:39 | Outpatient (CLI) | payer OTHER, SELFPAY ==
--- NOTE | 2024-10-13 12:37 | P.TNLD_ITS ---
Visit Information Visit Information Date of evaluation: 10/13/24 Primary OB Provider: Sirisha Castro Reason for Evaluation: Yes pre-term labor Comments/Additional reasons for admission: at 23 weeks 3 days who comes in concerned with menstrual cramps and thinks she lost her mucus plug because she had a big glob of discharge come out of her vagina. She did have intercourse yesterday morning. No bleeding. Good movement. [facility] Medical History (Updated 10/13/24 @ 12:39 by Sirisha Castro MD) Anemia Frequent UTI Partial molar Chicken pox Surgical History (Updated 06/25/24 @ 12:17 by Mariaa Roldan MD) History of dilation and curettage (~12/2023) Previous section [place] teeth extracted Family History (Updated 06/04/24 @ 08:13 by Chinyere Leon RN) Father Hyperlipidemia Hypertension Depression Anxiety PTSD (post-traumatic stress disorder) Mother Hypertension Hyperlipidemia Monserrat's disease Depression Sister Depression Grandfather Hyperlipidemia Hypertension Depression Suicide Anxiety Grandmother Hypertension OCD (obsessive compulsive disorder) Depression Grandfather Liver cancer Hypertension Stroke Rheumatoid arthritis PTSD (post-traumatic stress disorder) Depression Difficulty controlling anger Social History marital status: unmarried,living together number of children: 1 household members: significant other and children lives independently: Yes caregiver/support person: Yes housing: [facility] ([facility]) pets and animals: Yes ([facility]) education level: vocational ([employer] school) occupational status: employed (daycare) current occupational exposures/hazards: No special sabra needs: No travel history: over 6 months ago seatbelt use: always water heater temp set < 120 deg: Yes working smoke detector in home: Yes fire extinguisher in home: Yes carbon monox detector in home: Yes firearms in home: No do you feel safe at home: Yes Tobacco: How many years used: 8 quit status: considering quitting second hand exposure: Yes (s/o also trying to quit smoking/vaping) alcohol intake: former (extremely rarely when not ) substance use type: marijuana (not while /) during the past year weight has: other (back to normal non- weight) well-balanced diet: rarely or never daily servings fruits/ve-1 caffeine: Yes (single cup coffee ~every other day) Type(s) of exercise: none Review of Systems Review of Systems Narrative: No fevers. No bleeding. Good movement. Evaluation Evaluation Baseline heart rate: 150 Cervical dilation (cm): 0 Cervical effacement (%): 0 station: -4 Diagnosis, Plan/Disposition Final Diagnosis (1) 23 weeks gestation of : Status: Acute (2) Uterine irritability: Status: Acute Plan/Disposition Plan: Patient reassured her cervix is long closed thick and part is high. There is some possible uterine irritability on the monitor. Patient is to push fluids and rest. No intercourse until her symptoms resolve. Call if the cramping i ncreases, bleeding, any other concerns. OB Disposition: home
== END 2024-10-13 12:25 | disposition home or self-care (01) ==
LOC: OB 10-15 12:00
PROVIDERS: Referring Provider Specialist; Visit Provider Specialist
DX: O47.02 False labor before 37 completed weeks of gestation, second trimester (principal); Z3A.23 23 weeks gestation of pregnancy
CPT/HCPCS: 59050; G0378; G0379

== ENCOUNTER → 2024-10-24 09:30 | Outpatient (CLI) | payer OTHER, SELFPAY ==
[2024-10-24 11:40] LABS: Hemoglobin 9.9 g/dL (12.0-16.0)
[2024-10-24 13:18] LABS: GTT (PREG) 1 Hour PP 50gm Dose 42 mg/dL (76-139)
== END ==
PROVIDERS: PCP Specialist; Referring Provider Specialist; Visit Provider Specialist
DX: Z34.82 Encounter for supervision of other normal pregnancy, second trimester (principal); Z3A.26 26 weeks gestation of pregnancy
CPT/HCPCS: 36415; 82950; 85014; 85018

== ENCOUNTER → 2024-10-24 11:30 | Oncology outpatient (ONC) | payer OTHER, SELFPAY ==
[2024-10-15 09:56] VITALS: BP 109/60; PULSE 77; RESP 16; TEMP 37.1; O2SAT 100
[2024-10-15] MEDS: ONDANSETRON 4 MG/2 ML INJ IV (10:27)
[2024-10-15] MEDS: IRON SUCROSE 200 MG in SODIUM CHLORIDE 0.9% 100 ML 220 MG IV (10:41)
--- NOTE | 2024-10-15 10:45 | CM.MNRNOTE ---
0950: TO(rb) from Dr. Matthew EISENBERG for patient to receive 4mg Zofran IV now.
[2024-10-15 11:41] VITALS: BP 108/42; PULSE 76; RESP 16; TEMP 37.3; O2SAT 100
--- NOTE | 2024-10-15 12:32 | PC.NURSE ---
First time Iron infusion: patient complained of nauseau at arrival and requested medication for which a verbal IV zofran order was obtained. She received her iron sucrose subsequently. VSS and no nauseau at end of infusions.
[2024-10-17 10:45] VITALS: BP 103/65; PULSE 68; RESP 18; TEMP 36.8; O2SAT 99
[2024-10-17] MEDS: ACETAMINOPHEN 325 MG TABLET 975 MG PO (10:51)
[2024-10-17] MEDS: IRON SUCROSE 200 MG in SODIUM CHLORIDE 0.9% 100 ML 220 MG IV (10:52)
--- NOTE | 2024-10-17 10:53 | PC.NURSE ---
PAIN: PATIENT HAD EMERGENCY TOOTH EXTRACTION LAST NIGHT AND COMPLAINS OF HEADACHE #5, REQUESTED TYLENOL SHE RAN OUT. PER WILLOW EISENBERG FOR DR PABON ORDER OBTAINED FOR 1000MG; 975 MG GIVEN DUE TO WE ONLY SUPPLY THE 325 STRENGTH. PATIENT LAST TOOK TYLENOL AT HOME AT 7PM LAST NIGHT.
[2024-10-17 12:00] VITALS: BP 100/60; PULSE 66; RESP 18; TEMP 36.6; O2SAT 99
[2024-10-24] MEDS: IRON SUCROSE 200 MG in SODIUM CHLORIDE 0.9% 100 ML 220 MG IV (12:02)
[2024-10-24] MEDS: ONDANSETRON 4 MG/2 ML INJ IV (12:04)
[2024-10-24 13:07] VITALS: BP 108/68; PULSE 68; RESP 18; TEMP 36.8; O2SAT 99
== END ==
PROVIDERS: PCP Specialist; Referring Provider Specialist; Visit Provider Specialist
DX: O99.012 Anemia complicating pregnancy, second trimester (principal); Z3A.26 26 weeks gestation of pregnancy
CPT/HCPCS: 36415; 82950; 85014; 85018; 96365; 96375; J1756; J2405

== ENCOUNTER 2024-10-27 12:08 | Observation (INO) | payer OTHER, SELFPAY ==
[2024-10-27 13:17] LABS: Appearance Urine UA CLEAR; Bilirubin Urine UA NEGATIVE (NEGATIVE); Color Urine UA YELLOW; Glucose Urine UA NEGATIVE (Negative); Ketones Urine UA TRACE (NEGATIVE); Leukocyte Esterase Urine UA TRACE (NEGATIVE); Nitrite Urine UA NEGATIVE (Negative); Occult Blood Urine UA NEGATIVE (Negative); Protein Urine UA TRACE (Negative); Specific Gravity Urine UA 1.025 (1.000-1.035); Urobilinogen Urine UA 0.2 E.U./dL (0.2)
[2024-10-27 13:25] LABS: Add Manual Diff / Slide Review NO; Basophils Absolute Auto 0 /uL (0-100); Basophils Percent Auto 0.3 % (0-2); Eosinophils Absolute Auto 0 /uL (0-450); Eosinophils Percent Auto 0.6 % (2-4); Hematocrit 27.5 % (36-46); Hemoglobin 9.6 g/dL (12.0-16.0); Lymphocytes Absolute Auto 1100 /uL (1100-4500); Lymphocytes Percent Auto 18.1 % (25-40); Mean Corpuscular HGB Conc 34.9 % (30-36); Mean Corpuscular Hemoglobin 31.8 PG (26-34); Mean Corpuscular Volume 91.1 fL (80-100); Monocytes Absolute Auto 400 /uL (0-900); Monocytes Percent Auto 5.9 % (3-14); Neutrophils Absolute Auto 4700 /uL (1500-7000); Neutrophils Percent Auto 75.1 % (50-75); Platelet Count 191 X10^3/uL (150-400); Red Blood Cell Count 3.01 X10^6/uL (4.0-5.2); Red Cell Distribution Width 13.1 % (11.6-14.8); White Blood Cell Count 6.3 X10^3/uL (4.5-11.0)
[2024-10-27 13:26] LABS: Bacteria Urine Moderate (10-30); Culture Indicated Urine Specimen Cultured; Mucus Urine 1+ (Negative); RBC Urine 0-1/HPF (0-5/HPF); Squamous Epithelial Cell Urine 1-5 /HPF (0-5/HPF); Urine Volume 10mL (spun); WBC Urine 0-1/HPF (0-5/HPF)
[2024-10-27 13:31] LABS: Alanine Aminotransferase 19 IU/L (<35); Albumin 3.7 g/dL (3.5-5.0); Albumin Globulin Ratio 1.4 (1.0-2.8); Alkaline Phosphatase 67 U/L (38-126); Aspartate Aminotransferase 28 IU/L (14-36); BUN Creatinine Ratio 17.2 (6-22); Bilirubin Total 0.7 mg/dL (0.2-1.3); Blood Urea Nitrogen 10 mg/dL (7-17); Calcium 8.9 mg/dL (8.4-10.2); Carbon Dioxide 22 mmol/L (22-32); Chloride 108 mmol/L (98-107); Estimated Glomerular Filt Rate > 60 mL/min (>60); Globulin 2.6 g/dL (1.7-4.1); Glucose 103 mg/dL (70-99); HEMOLYSIS < 15 (0-50); Potassium 3.5 mmol/L (3.4-5.1); Sodium 136 mmol/L (137-145); Total Protein 6.3 g/dL (6.3-8.2)
[2024-10-27 13:40] LABS: Creatinine Urine Random 290.12 mg/dL; Protein (Total) Urine Random 8 mg/dL (0-12); Protein Creatinine Ratio Urine 0.02 GRAM/24H
--- NOTE | 2024-10-27 18:29 | PM.OBTRLD ---
Visit Information Visit Information Date of evaluation: 10/27/24 Primary OB Provider: Mariaa Roldan Comments/Additional reasons for admission: 24 yo presenting at 25w2d for blurry vision, anxiety and fatigue. At home she checked her blood sugar and found glucose to be 275. [facility] Medical History (Updated 10/13/24 @ 12:39 by Sirisha Castro MD) Anemia Frequent UTI Partial molar Chicken pox Surgical History (Updated 06/25/24 @ 12:17 by Mariaa Roldan MD) History of dilation and curettage (~12/2023) Previous section [place] teeth extracted Family History (Updated 06/04/24 @ 08:13 by Chinyere Leon RN) Father Hyperlipidemia Hypertension Depression Anxiety PTSD (post-traumatic stress disorder) Mother Hypertension Hyperlipidemia Monserrat's disease Depression Sister Depression Grandfather Hyperlipidemia Hypertension Depression Suicide Anxiety Grandmother Hypertension OCD (obsessive compulsive disorder) Depression Grandfather Liver cancer Hypertension Stroke Rheumatoid arthritis PTSD (post-traumatic stress disorder) Depression Difficulty controlling anger Social History marital status: unmarried,living together number of children: 1 household members: significant other and children lives independently: Yes caregiver/support person: Yes housing: [facility] ([facility]) pets and animals: Yes ([facility]) education level: vocational ([employer] school) occupational status: employed (daycare) current occupational exposures/hazards: No special sabra needs: No travel history: over 6 months ago seatbelt use: always water heater temp set < 120 deg: Yes working smoke detector in home: Yes fire extinguisher in home: Yes carbon monox detector in home: Yes firearms in home: No do you feel safe at home: Yes Tobacco: How many years used: 8 quit status: considering quitting second hand exposure: Yes (s/o also trying to quit smoking/vaping) alcohol intake: former (extremely rarely when not ) substance use type: marijuana (not while /) during the past year weight has: other (back to normal non- weight) well-balanced diet: rarely or never daily servings fruits/ve-1 caffeine: Yes (single cup coffee ~every other day) Type(s) of exercise: none Objective Labs 10/27/24 13:05 10/27/24 13:05 Labs: Laboratory Results - last 24 hr 10/27/24 13:05 WBC 6.3 RBC 3.01 L Hgb 9.6 L Hct 27.5 L MCV 91.1 MCH 31.8 MCHC 34.9 RDW 13.1 Plt Count 191 Neut % (Auto) 75.1 H Lymph % (Auto) 18.1 L [place] % (Auto) 5.9 Eos % (Auto) 0.6 L Baso % (Auto) 0.3 Neut # (Auto) 4700 Lymph # (Auto) 1100 [place] # (Auto) 400 Eos # (Auto) 0 Baso # (Auto) 0 Sodium 136 L Potassium 3.5 Chloride 108 H Carbon Dioxide 22 BUN 10 Creatinine 0.58 Estimated GFR > 60 BUN/Creatinine Ratio 17.2 Glucose 103 H Calcium 8.9 Total Bilirubin 0.7 AST 28 ALT 19 Alkaline Phosphatase 67 Total Protein 6.3 Albumin 3.7 Globulin 2.6 Albumin/Globulin Ratio 1.4 Urine Color Yellow Urine Appearance Clear Urine pH 6.0 Ur Specific [place] 1.025 Urine Protein Trace H Urine Glucose (UA) Negative Urine Ketones Trace H Urine Occult Blood Negative Urine Nitrate Negative Urine Bilirubin Negative Urine Urobilinogen 0.2 Ur Leukocyte Esterase Trace H Urine RBC 0-1/hpf Urine WBC 0-1/hpf Ur Squamous Epith Cells 1-5 /hpf Urine Bacteria Moderate (10-30) H Urine Mucus 1+ H Ur Culture Indicated? Specimen cultured Vol Urine Centrifuged 10ml (spun) U Random Total Protein 8 Urine Creatinine 290.12 Protein/Creatinin Ratio 0.02 Evaluation Evaluation Baseline heart rate: 145 (Doppler due to EGA ) Diagnosis, Plan/Disposition Plan/Disposition Plan: 24 yo presenting at 25w2d for blurry vision, anxiety and fatigue. At home she checked her blood sugar and found glucose to be 275. FHT via doppler 145. Labs with stable anemia compared to previous check 4 days prior. She has been receiving IV Fe infusions for this. CBC otherwise unremarkable. electrolytes reassuring, glucose of 103. REcent GTT reviewed, 1 hr value of 42. LFTs nml. Plts nml. Ua showing trace protein and moderate bacteria, sent to culture. Urine Pc 0.02. Suspect that glucose was checked right after meal but unclear why it was so elevated. Recommend pt f.up with primary OB to discuss further. At this time, no signs of Pre-E, DKA/hyperglycemia. Pt discharged home with recommendations fo rclose f/up OB Disposition: home
== END 2024-10-27 14:25 | disposition home or self-care (01) ==
LOC: LABOR 12:10
PROVIDERS: Admitting Provider Family Medicine; PCP Specialist; Referring Provider Family Medicine; Visit Provider Family Medicine
DX: H53.8 Other visual disturbances (principal); O26.812 Pregnancy related exhaustion and fatigue, second trimester; O99.342 Other mental disorders complicating pregnancy, second trimester; F41.9 Anxiety disorder, unspecified
CPT/HCPCS: 36415; 80053; 81001; 82570; 84156; 85025; 87086; G0378; G0379